=== PATIENT | male | born 1970 | race African-American/Black ===

== ENCOUNTER 2023-10-24 11:54 | Inpatient (IN) | payer OTHER ==
[2023-10-24 13:13] VITALS: BMI 31.2
[2023-10-24] MEDS ORDERED: DICYCLOMINE HCL 10 MG CAPSULE PO PRN (15:08)
[2023-10-24] MEDS ORDERED: guaiFENesin 600 MG TABLET.ER (FP) PO PRN (15:08)
[2023-10-24] MEDS ORDERED: MAG HYDROX/AL HYDROX/SIMETH 30 ML UNIT-DOSE CUP PO PRN (15:08)
[2023-10-24] MEDS ORDERED: MAGNESIUM HYDROX 2400MG/30ML ORAL SUSPENSION 30 ML CUP PO PRN (15:08)
[2023-10-24] MEDS ORDERED: METHOCARBAMOL 500 MG TABLET PO PRN (15:08)
[2023-10-24] MEDS ORDERED: BENZOCAINE/MENTHOL (CHLORASEPTIC ) LOZENGE MM PRN (15:08)
[2023-10-24] MEDS ORDERED: BISMUTH SUBSALICYLATE 262 MG/15 ML BTL PO PRN (15:08)
[2023-10-24] MEDS ORDERED: POLYETHYLENE GLYCOL (HEALTHYLAX) 3350 17 GM PACKET PO PRN (15:08)
[2023-10-24] MEDS ORDERED: ONDANSETRON *ODT* 4 MG TABLET SL PRN (15:08)
[2023-10-24] MEDS ORDERED: IBUPROFEN 400 MG TABLET (FP) PO PRN (15:08)
[2023-10-24] MEDS ORDERED: ACETAMINOPHEN 325 MG TABLET (FP) PO PRN (15:08)
[2023-10-24] MEDS ORDERED: BENZONATATE 200 MG CAPSULE PO PRN (15:08)
[2023-10-24] MEDS ORDERED: NALOXONE HCL 0.4 MG/ML VIAL IM PRN (15:08)
[2023-10-24] MEDS ORDERED: LOPERAMIDE HCL 2 MG CAPSULE PO PRN (15:08)
[2023-10-24] MEDS ORDERED: NALOXONE HCL (KLOXXADO) 8 MG SPRAY NS PRN (15:08)
[2023-10-24] MEDS ORDERED: PRENATAL VITAMINS W/ FOLIC ACID TABLET (FP) PO ONE (15:54)
[2023-10-24] MEDS: PRENATAL VITAMINS W/ FOLIC ACID TABLET (FP) PO SCH (15:56)
[2023-10-24] MEDS: hydrOXYzine PAMOATE 25 MG CAPSULE (FP) PO PRN (17:29)
[2023-10-24] MEDS: IBUPROFEN 600 MG TABLET (FP) PO PRN (17:29)
[2023-10-24 17:43] VITALS: TEMP 97.7
[2023-10-24] MEDS: THIAMINE HCL 100 MG TABLET (FP) PO SCH (22:33)
[2023-10-24] MEDS: MELATONIN 5 MG TABLETS PO SCH (22:33)
[2023-10-25 09:34] VITALS: BP 132/68; PULSE 61; RESP 18
[2023-10-25] MEDS: PNEUMOC 20-VAL CONJ-DIP CRM/PF 0.5 ML SYRINGE IM ONE (11:53)
[2023-10-25 12:05] LABS: HEMOGLOBIN 11.9 GM/dL (11.7-16.9); MCHC 33.9 g/dl (32.0-35.9); MEAN CELL VOLUME 82.7 fl (80-96); MEAN PLT VOLUME 8.2 fl (7.5-11.1); PLATELET COUNT 167 10^3/uL (134-434); RBC 4.24 M/mm3 (4.00-5.60); RDW 15.4 % (11.9-15.9); WHITE BLOOD COUNT 5.3 K/mm3 (4.0-10.0)
[2023-10-25 12:13] LABS: POTASSIUM 3.9 mmol/L (3.5-5.1)
[2023-10-25 12:20] LABS: CALCIUM 8.4 mg/dL (8.5-10.1)
[2023-10-25 12:21] LABS: ALBUMIN 3.4 g/dl (3.4-5.0); BLOOD UREA NITROGEN 16.6 mg/dL (7-18)
[2023-10-25 12:25] LABS: BILIRUBIN,TOTAL 1.2 mg/dL (0.2-1)
[2023-10-25 12:26] LABS: TOT PROT 7.4 g/dl (6.4-8.2)
== END 2023-10-25 12:43 | disposition other institution (70) | DRG 773 ==
LOC: YASAS 11:54 → Y6N 15:44
PROVIDERS: ADMIT Allergy & Immunology; ATTEND Surgery
PROC: HZ2ZZZZ Detoxification Services for Substance Abuse Treatment (ICD-10-PCS; principal; 2023-10-24)
DX: F11.20 Opioid dependence, uncomplicated (principal); F10.10 Alcohol abuse, uncomplicated; F14.10 Cocaine abuse, uncomplicated; Z87.891 Personal history of nicotine dependence; Z59.01 Sheltered homelessness
CPT/HCPCS: 36415; 80053; 80305; 85027; 86593; 86780; 87635; 87811; 90677; 93005; 93010

== ENCOUNTER 2023-10-25 12:53 | Inpatient (IN) | payer OTHER ==
[2023-10-25] MEDS ORDERED: POLYETHYLENE GLYCOL (HEALTHYLAX) 3350 17 GM PACKET PO PRN (14:14)
[2023-10-25] MEDS ORDERED: NALOXONE HCL (KLOXXADO) 8 MG SPRAY NS PRN (14:14)
[2023-10-25] MEDS ORDERED: BENZONATATE 200 MG CAPSULE PO PRN (14:14)
[2023-10-25] MEDS ORDERED: NICOTINE POLACRILEX 4 MG LOZENGE BC PRN (14:14)
[2023-10-25] MEDS ORDERED: NICOTINE POLACRILEX 4 MG GUM BUC PRN (14:14)
[2023-10-25] MEDS ORDERED: LOPERAMIDE HCL 2 MG CAPSULE PO PRN (14:14)
[2023-10-25] MEDS ORDERED: guaiFENesin 600 MG TABLET.ER (FP) PO PRN (14:14)
[2023-10-25] MEDS ORDERED: BENZOCAINE/MENTHOL (CHLORASEPTIC ) LOZENGE MM PRN (14:14)
[2023-10-25] MEDS ORDERED: MAG HYDROX/AL HYDROX/SIMETH 30 ML UNIT-DOSE CUP PO PRN (14:14)
[2023-10-25] MEDS ORDERED: MAGNESIUM HYDROX 2400MG/30ML ORAL SUSPENSION 30 ML CUP PO PRN (14:14)
[2023-10-25] MEDS ORDERED: hydrOXYzine PAMOATE 25 MG CAPSULE (FP) PO PRN (14:14)
[2023-10-25] MEDS ORDERED: IBUPROFEN 400 MG TABLET (FP) PO PRN (14:14)
[2023-10-25] MEDS ORDERED: NALOXONE HCL 0.4 MG/ML VIAL IVPUSH PRN (14:14)
[2023-10-25] MEDS ORDERED: ACETAMINOPHEN 325 MG TABLET (FP) PO PRN (14:14)
[2023-10-25] MEDS ORDERED: METHOCARBAMOL 500 MG TABLET PO PRN (14:14)
[2023-10-25] MEDS: IBUPROFEN 600 MG TABLET (FP) PO PRN (17:31)
[2023-10-25] MEDS: MELATONIN 5 MG TABLETS PO SCH (22:57)
[2023-10-25] MEDS: THIAMINE HCL 100 MG TABLET (FP) PO SCH (22:57)
[2023-10-26] MEDS: NICOTINE 21 MG/24 HOURS TOPICAL PATCH TD SCH (09:39)
[2023-10-26] MEDS: PRENATAL VITAMINS W/ FOLIC ACID TABLET (FP) PO SCH (09:39)
[2023-10-26] MEDS ORDERED: AMMONIUM LACTATE 12% LOTION 225 GM BOTTLE TP PRN (14:17)
[2023-10-26] MEDS: propRANOLol HCL 10 MG TABLET PO SCH (21:37)
[2023-10-26 22:02] LABS: URINE APPEARANCE CLEAR; URINE BILIRUBIN NEGATIVE (NEGATIVE); URINE COLOR YELLOW; URINE GLUCOSE (UA) NEGATIVE (NEGATIVE); URINE KETONE NEGATIVE (NEGATIVE); URINE LEUK ESTERASE NEGATIVE (NEGATIVE); URINE NITRITE NEGATIVE (NEGATIVE); URINE PROTEIN NEGATIVE (NEGATIVE)
[2023-10-30] MEDS: LACTULOSE 20 GM/30 ML UDC (FOR ORAL USE ONLY) PO SCH (13:20)
[2023-11-07 09:17] VITALS: RESP 18
[2023-11-08 06:59] VITALS: TEMP 97.1
[2023-11-08 09:11] VITALS: BP 117/71; PULSE 89
== END 2023-11-08 09:22 | disposition home or self-care (01) | DRG 772 ==
LOC: YASAS 12:53 → Y3W 12:56
PROVIDERS: ADMIT Allergy & Immunology; ATTEND Psychiatry & Neurology Pain Medicine
PROC: HZ42ZZZ Group Counseling for Substance Abuse Treatment, Cognitive-Behavioral (ICD-10-PCS; principal; 2023-10-25)
DX: F11.20 Opioid dependence, uncomplicated (principal); F10.20 Alcohol dependence, uncomplicated; F14.20 Cocaine dependence, uncomplicated; E72.20 Disorder of urea cycle metabolism, unspecified; G43.909 Migraine, unspecified, not intractable, without status migrainosus; L85.3 Xerosis cutis; Z87.891 Personal history of nicotine dependence; Z59.01 Sheltered homelessness
CPT/HCPCS: 36415; 81003; 82140; 86803; 87522